=== PATIENT | female | born 1960 | race Caucasian/White ===

== ENCOUNTER 2019-11-25 12:09 | Outpatient (CLI) | payer BC ==
--- NOTE | 2019-11-25 12:47 | RAD ---
XR Shoulder Lt 3 View STANDARD HISTORY: Fall, left shoulder pain FINDINGS: There is a mildly displaced fracture involving greater tuberosity of the left proximal humerus..
== END 2019-11-25 12:10 | disposition home or self-care (01) ==
LOC: MADRAD 12:09
PROVIDERS: ATTEND Family Medicine
DX: M25.512 Pain in left shoulder (principal)

== ENCOUNTER 2021-05-17 14:47 | Outpatient (CLI) | payer BC | END 2021-05-17 14:48 | disposition home or self-care (01) | LOC: MADLAB 14:47 | PROVIDERS: ATTEND Family Medicine | DX: S89.91XA Unspecified injury of right lower leg, initial encounter (principal); S82.831A Other fracture of upper and lower end of right fibula, initial encounter for closed fracture; M17.12 Unilateral primary osteoarthritis, left knee ==

== ENCOUNTER 2022-01-12 10:55 | Emergency (ER) | payer BC ==
[~2022-01-12 10:55] MED LIST: NS 0.9% w/ 20 MEQ KCL 1,000 ML BAG ONE
[2022-01-12 13:15] LABS: #Basophils 0.1 thou/uL (0.0-0.2); #Eosinphils 0.2 thou/uL (0.0-0.7); #Lymphocytes 1.4 thou/uL (1.20-3.40); #Monocytes 0.8 thou/uL (0.11-0.59); %Basophils 1.3 % (0.0-1.0); %Eosinophils 1.9 % (0.0-10.0); %Lymphocytes 16.2 % (21.0-51.0); %Monocytes 8.9 % (0.0-10.0); %Neutrophils 71.6 % (42.0-75.0); Hemoglobin 12.2 g/dL (12.0-16.0); Mean Corpuscular HGB CONC 33.2 g/dL (32.0-36.0); Mean Corpuscular Hemoglobin 33.1 pg (27.0-31.0); Mean Corpuscular Volume 99.7 fl (78.0-98.0); Platelet Count 198 10x3/uL (130-400); RBC Distribution Width 11.9 % (11.5-14.5); Red Blood Cell (RBC) Count 3.69 mill/uL (4.20-5.40); White Blood Cell (WBC) Count 8.4 10x3/uL (4.8-10.8)
[2022-01-12 13:29] LABS: ALT (SGPT) 90 U/L (8-55); AST (SGOT) 92 U/L (5-34); Alkaline Phosphatase 124 U/L (40-110); Anion Gap 21 mmol/L (10-20); BUN (Urea Nitrogen) 28 mg/dL (9.8-20.1); Bilirubin, Total 1.7 mg/dL (0.2-1.2); CK (CPK) 53 U/L (29-168); Calc. Creatinine Clearance 0 mL/min (70-130); Calcium 10.1 mg/dL (7.8-10.44); Carbon Dioxide 22 mmol/L (23-31); Chloride 91 mmol/L (98-107); Estimated GFR 39; Globulin 4.8 g/dL (2.4-3.5); Magnesium 1.7 mg/dL (1.6-2.6); Potassium 4.9 mmol/L (3.5-5.1); Protein, Total 8.8 g/dL (5.8-8.1); Sodium 129 mmol/L (136-145)
[2022-01-12 13:36] LABS: Glucose 550 mg/dL (80-115)
[2022-01-12] MEDS ORDERED: Lactated Ringer's 2,000 ML ONE (13:54)
[2022-01-12 13:55] LABS: Base Excess-Venous -0.3 mmol/L (-2.0 to 3.0); CO2 Tension (PvCO2) 48.4 mmHg (42.0-51.0); Calcium, Ionized 1.17 mmol/L (1.15-1.33); Chloride 91 mmol/L (98-107); Hemoglobin - Calc 13.3 g/dL (12.0-16.0); Sodium 129 mmol/L (138-145); T. Carbon Dioxide 27.5 mmol/L (22.0-28.0); vO2 Saturation-calc 84.8 % (60.0-85.0)
[2022-01-12 14:27] LABS: Phosphorus 3.5 mg/dL (2.3-4.7)
[2022-01-12] MEDS ORDERED: INSULIN REGULAR IN 0.9 % NACL 100 UNIT/100 ML BAG ONE (15:27)
[2022-01-12 16:46] LABS: Bilirubin Negative (Negative); Blood, Urine Trace (Negative); Clarity Slightly Cloudy (Clear); Glucose, Urine (Dipstick) >=1000 mg/dL (Negative); Ketone, Urine Trace mg/dL (Negative); Leukocyte Small (Negative); Nitrite Negative (Negative); Protein, Urine (Dipstick) Negative (Neg-Trace); Specific Gravity, Urine 1.015 (1.005-1.030); Urobilinogen 0.2 mg/dL (Less than 2); pH, Urine 5.5 (5.0-9.0)
[2022-01-12 16:47] LABS: Bacteria/HPF 2+ HPF (None Seen); RBC/HPF 0-3 HPF (0-3); WBC/HPF 21-50 HPF (0-3)
[2022-01-12 17:31] LABS: Anion Gap 14 mmol/L (10-20); BUN (Urea Nitrogen) 25 mg/dL (9.8-20.1); Calc. Creatinine Clearance 0 mL/min (70-130); Calcium 9.7 mg/dL (7.8-10.44); Carbon Dioxide 23 mmol/L (23-31); Chloride 99 mmol/L (98-107); Estimated GFR 50; Glucose 344 mg/dL (80-115); Sodium 132 mmol/L (136-145)
== END 2022-01-12 17:35 | disposition short-term general hospital (02) ==
LOC: MADERS 10:55
DX: N17.9 Acute kidney failure, unspecified (principal); E11.10 Type 2 diabetes mellitus with ketoacidosis without coma; R74.01 Elevation of levels of liver transaminase levels; E78.5 Hyperlipidemia, unspecified; I10 Essential (primary) hypertension; F17.210 Nicotine dependence, cigarettes, uncomplicated; Z79.899 Other long term (current) drug therapy
CPT/HCPCS: 36416; 71045; 80053; 81003; 81015; 82010; 82330; 82550; 82803; 83735; 83880; 84100; 84443; 84484; 85025; 87086; 93005; 94760; 96361; 96365; 96366; 96368; 36415-59; J1815; J3480; J7120